=== PATIENT | female | born 1980 | race African-American/Black ===

== ENCOUNTER 2022-08-09 10:01 | Outpatient (CLI) | payer OTHER ==
--- NOTE | 2022-08-09 13:58 | MRI Report ---
PROCEDURE: Shoulder RT W/O INDICATIONS: FALL ON RIGHT SHOULDER TECHNIQUE: Noncontrast oblique coronal T2 fast spin echo with fat saturation, oblique sagittal T1 spin echo and T2 fast spin echo with fat saturation, axial T1 spin echo and T2 fast spin echo with fat saturation t hrough the shoulder. COMPARISON: None. FINDINGS: Image quality: Excellent. Rotator cuff: There is a intrasubstance tear of the infraspinatus tendon at the musculotendinous junc tion. There is some associated fluid in this region suggesting hematoma/seroma.. There is some modera te tendinopathy involving the supra and infraspinatus tendons. Bones and bursae: No bone marrow contusions or fractures. There is moderate AC joint degenerative ch glenroy present as well as moderate glenohumeral joint degenerative change seen. Capsule and soft tissues: There appear to be chronic tears of the glenoid labrum. There is a moderate to large sized shoulder joint effusion present. Bicipital tendon is within its normal position in the bicipital groove however there is moderate tend inopathy of the long head of the biceps tendon after it exits the bicipital groove proximally. IMPRESSION: 1. No full-thickness rotator cuff tear identified. 2. Intrasubstance tearing of the infraspinatus with some fluid present suggesting seroma/hematoma or blood products at the musculotendinous junction. 3. Moderate tendinopathy of the supraspinatus and infraspinatus tendon. 4. Chronically torn glenoid labrum. 5. Moderate AC joint degenerative change. 6. Moderate glenohumeral joint degenerative change. 7. Moderate to large sized shoulder joint effusion. 8. Moderate tendinopathy of the proximal long head biceps tendon after it exits the bicipital groove. Reviewed by: Wilfredo Gilliam MD on 08/09/2022 1:57 PM PDT Approved by: Wilfredo Gilliam MD on 08/09/2022 1:57 PM PDT Station ID: [id number]
== END 2022-08-09 10:02 | disposition home or self-care (01) ==
LOC: DI 10:01
PROVIDERS: ATTEND Student in an Organized Health Care Education/Training Program
DX: M75.111 Incomplete rotator cuff tear or rupture of right shoulder, not specified as traumatic (principal); S43.491A Other sprain of right shoulder joint, initial encounter; M19.011 Primary osteoarthritis, right shoulder; M25.411 Effusion, right shoulder; M67.921 Unspecified disorder of synovium and tendon, right upper arm

== ENCOUNTER 2022-09-05 08:00 | Outpatient (CLI) | payer OTHER ==
--- NOTE | 2022-09-05 15:58 | XRAY Report ---
PROCEDURE: Shoulder 3 View RT INDICATIONS: RIGHT SHOULDER PAIN TECHNIQUE: 4 views of the shoulder were acquired. COMPARISON: MRI right shoulder, 08/09/2022. FINDINGS: Bones: No fractures or dislocations. No suspicious bony lesions. There is mild degenerative joint d isease in acromioclavicular and glenohumeral joint. Visualized ribs appear intact. Soft tissues: No suspicious soft tissue calcifications. IMPRESSION: No acute osseous amenities. Mild degenerative joint disease. Reviewed by: Fortino Parkinson MD on 09/05/2022 3:57 PM PDT Approved by: Fortino Parkinson MD on 09/05/2022 3:57 PM PDT Station ID: [id number]
== END 2022-09-05 23:59 | disposition home or self-care (01) ==
LOC: DI.WOS 08:00
PROVIDERS: ATTEND Orthopaedic Surgery
DX: M19.011 Primary osteoarthritis, right shoulder (principal)

== ENCOUNTER 2023-01-04 15:23 | Outpatient (CLI) | payer OTHER ==
--- NOTE | 2023-01-04 23:34 | XRAY Report ---
PROCEDURE: Ankle 3 View LT INDICATIONS: LEFT ANKLE FRACTURE TECHNIQUE: 3 views of the ankle were acquired. COMPARISON: CT FINDINGS: Bones: Pes planus deformity. Mild plantar calcaneal spurring. Mildly displaced distal medial malleola r fracture with cortication. Tiny osseous fragment along the posterior malleolus. No acute fractures. Ankle mortise is normally aligned. No suspicious bony lesions. Soft tissues: No tibiotalar joint effusion. Achilles tendon appears normal. IMPRESSION: 1. Tiny ossified fragments adjacent to the medial and posterior malleolus more consistent with remote fractured fragments rather than acute fractures. 2. Pes planus deformity. Reviewed by: Margaret Jackson MD on 01/04/2023 11:44 PM PST Approved by: Margaret Jackson MD on 01/04/2023 11:44 PM PST Station ID: [id number]
== END 2023-01-04 15:30 | disposition home or self-care (01) ==
LOC: DI.WOS 15:23
PROVIDERS: ATTEND Physician Assistant Surgical
DX: M25.572 Pain in left ankle and joints of left foot (principal); M21.42 Flat foot [pes planus] (acquired), left foot

== ENCOUNTER 2023-06-28 16:43 | Outpatient (CLI) | payer OTHER ==
--- NOTE | 2023-06-29 15:47 | MRI Report ---
PROCEDURE: HIP WO - RT INDICATIONS: HIP PAIN TECHNIQUE: Noncontrast coronal T1 spin echo and STIR through the bony pelvis. Coronal and axial T2 fast spin ec ho with fat saturation, sagittal T1 spin echo, and oblique axial T2 fast spin echo with fat saturatio n through the hip. COMPARISON: MRI dated 06/04/2018 FINDINGS: Image quality: Excellent. Bones and joints: Bone marrow of the pelvic ring and proximal femurs show normal signal throughout. No intraosseous lesions or fractures. No avascular necrosis of the femoral heads. The visualized l ower lumbar spine appears normally aligned. Tendons: The gluteus medius and minimus tendons appear intact, without associated muscle atrophy. M ild T2 signal elevation adjacent to the femoral insertion sites of the right gluteus medius and minim us tendons. The iliopsoas tendon appears intact, without adjacent bursal fluid collections. The orig in of the hamstring tendon is intact at the ischial tuberosity. Labrum and cartilage: The acetabular labrum appears intact in the absence of intra-articular contras t. Cartilage surface of the femoral head appears of normal thickness. The alpha angle of the femur is within normal limits at less than 55 degrees. Soft tissues: Visualized muscles demonstrate normal bulk and internal signal. The proximal sciatic neurovascular bundle appears normal adjacent to the hamstring tendons. No free pelvic fluid. Bladde r wall thickness is normal. Genitourinary structures and bowel loops appear normal where visualized. IMPRESSION: 1. Insertional tendinitis of the right gluteus medius and minimus tendons. Reviewed by: Jeremy Koo MD on 06/29/2023 3:46 PM PDT Approved by: Jeremy Koo MD on 06/29/2023 3:46 PM PDT Station ID: [id number]
== END 2023-06-28 16:44 | disposition home or self-care (01) ==
LOC: DI 16:43
PROVIDERS: ATTEND Student in an Organized Health Care Education/Training Program
DX: M76.01 Gluteal tendinitis, right hip (principal)

== ENCOUNTER 2023-08-30 07:45 | Outpatient (CLI) | payer OTHER | END 2023-08-30 08:00 | disposition home or self-care (01) | LOC: LAB.N 07:45 | PROVIDERS: ATTEND Nurse Practitioner | DX: N39.0 Urinary tract infection, site not specified (principal) | CPT/HCPCS: 87086 ==